=== PATIENT | female | born 1970 | race Caucasian/White ===

== ENCOUNTER 2019-07-22 07:31 | Inpatient (IN) ==
--- NOTE | 2019-06-27 09:52 | PAT Medication Instructions ---
Medication Instructions Date of Service June 27, 2019 Home Medications baclofen 10 mg PO BID celecoxib [Celebrex] 200 mg PO QAM cholecalciferol (vitamin D3) [Vitamin D3] 2,000 unit PO DAILY fenofibrate nanocrystallized [Tricor] 145 mg PO QAM multivitamin 1 tab PO DAILY ASK your surgeon for instructions celecoxib [Celebrex] 200 mg PO QAM STOP taking 48 hours before surgery fenofibrate nanocrystallized [Tricor] 145 mg PO QAM DO NOT take the morning of surgery baclofen 10 mg PO BID cholecalciferol (vitamin D3) [Vitamin D3] 2,000 unit PO DAILY multivitamin 1 tab PO DAILY Take evening before surgery baclofen 10 mg PO BID Other Notes If you have any questions please call us at [phone] or [phone] or [phone] or [phone]
--- NOTE | 2019-06-28 15:00 | PAT Medication Instructions ---
Medication Instructions Date of Service June 28, 2019 Home Medications baclofen 10 mg PO BID celecoxib [Celebrex] 200 mg PO QAM cholecalciferol (vitamin D3) [Vitamin D3] 2,000 unit PO DAILY fenofibrate nanocrystallized [Tricor] 145 mg PO QAM multivitamin 1 tab PO DAILY ASK your surgeon for instructions celecoxib [Celebrex] 200 mg PO QAM STOP taking 48 hours before surgery fenofibrate nanocrystallized [Tricor] 145 mg PO QAM DO NOT take the morning of surgery baclofen 10 mg PO BID cholecalciferol (vitamin D3) [Vitamin D3] 2,000 unit PO DAILY multivitamin 1 tab PO DAILY Take evening before surgery baclofen 10 mg PO BID *NOTHING TO EAT OR DRINK AFTER MIDNIGHT* Other Notes If you have any questions please call us at [phone] or [phone] or [phone] or [phone]
--- NOTE | 2019-07-01 08:25 | Anesthesiology Consultation ---
Date of Service July 01, 2019 Assessment & Plan (1) Encounter for pre-operative examination: Chart Review Chart Review: Acceptable Risk for Surgery and Patient seen in Pre Admission Testing Teaching & Discussion Pre-Anesthesia Teaching/Discussion Notes: Instructed NPO after midnight before surgery,except medications with 15 cc of water. Medication instructions provided according to the PAT guidelines. History Surgery Operation Date: 07/22/19 07:45 Proposed Procedures p C3-C4 Anterior Cervical Discectomy and Fusion, Possible C4-C5 Anterior Cervical Discectomy and Fusion, Spinal Cord Monitoring - Jose A Lemus DO Height/Weight Height: 5 ft 7 in Weight: 83.1 kg Allergies Allergy/AdvReac Type Severity Reaction Status Date / Time aspirin Allergy Severe throat Verified 06/27/19 09:52 swelling ibuprofen AdvReac Mild upset Verified 06/25/19 12:02 stomach Medications Home Medications Medication Instructions Recorded Confirmed Last Taken baclofen 10 mg PO BID 06/25/19 06/25/19 Unknown celecoxib [Celebrex] 200 mg PO QAM 06/25/19 06/25/19 Unknown cholecalciferol (vitamin D3) 2,000 unit PO DAILY 06/25/19 06/25/19 Unknown [Vitamin D3] fenofibrate nanocrystallized 145 mg PO QAM 06/25/19 06/25/19 Unknown [Tricor] multivitamin 1 tab PO DAILY 06/25/19 06/25/19 Unknown Past Medical History Medical History Degenerative disc disease Hyperlipidemia Migraine Neck pain Peripheral neuropathy Spondylarthrosis Spondylisthesis Exercise / Class Metabolic Activity II 4-5 Yardwork/Stairs/Walk up hill (one flight of stairs (no chest pain/no sob)) Past Family History Family History Other No family history of adverse response to anesthesia Past Surgical History Surgical History History of bilateral tubal ligation History of tonsillectomy Hx of foot surgery left big toe joint implant Hx of repair of left rotator cuff S/P ACL repair right knee with donor graft S/P arthroscopy of left shoulder S/P left knee arthroscopy S/P CINDY (total abdominal hysterectomy) Past Anesthesia History No Hx of Anesthesia Complications and No Family Hx of Anesthesia Complications History of PONV No Hx of PONV and No Hx of Motion Sickness STOP BANG Total 1 Social History Smoking Status: Former smoker tobacco type: cigarettes Do You Dip or Chew Tobacco: No Smoking End Date: Quit 2015 Hx Alcohol Use: No Hx Substance Use: No substance use type: does not use Review of Systems Patient denies chest pain, shortness of breath, dyspnea on exertion, reflux, cough, wheezing, palpitations. Physical Exam Vital Signs VITALS BP 143/78 P 70 TEMP 98.1 SP02 100%RA RESP 18 PHYSICAL Significant decreased cervical extension 2/2 cervicalgia (reason for upcoming surgery)* Full TMJ range of motion. TMD 3.5 finger breaths Mallampati Score 2 Dentition: several missing sides, possible crown Lungs: clear throughout to auscultation Cardiac: regular rate and rhythm, no murmurs noted Spine: normal Carotid arteries: negative bruit Extremities: no edema Testing Laboratory Results 07/01/19 08:20 07/01/19 08:20 PT 10.6 Seconds (9.0-12.0) 07/01/19 08:20 INR 1.0 (0.9-1.1) 07/01/19 08:20 APTT 25.4 Seconds (21.0-31.0) 07/01/19 08:20 Urine Color Yellow 07/01/19 08:20 Urine Appearance Clear (Clear) 07/01/19 08:20 Urine pH 6.0 (4.5-7.5) 07/01/19 08:20 Ur Specific [place] 1.019 (1.000-1.030) 07/01/19 08:20 Urine Protein Negative (Negative) 07/01/19 08:20 Urine Glucose (UA) Negative (Negative) 07/01/19 08:20 Urine Ketones Negative (Negative) 07/01/19 08:20 Urine Nitrite Negative (Negative) 07/01/19 08:20 Ur Leukocyte Esterase Negative (Negative) 07/01/19 08:20 Blood Type O Positive 07/01/19 08:20 Antibody Screen NEGATIVE 07/01/19 08:20 Electrocardiogram Date: 07/01/19 Findings: + NSR @ (64) Chest X-Ray Date: 07/01/19 Findings: + NAD
--- NOTE | 2019-07-01 08:51 | XRay Report ---
XR chest Pre-admission PA/Lat CLINICAL HISTORY: Preoperative evaluation. COMPARISON STUDY: No previous studies for comparison. FINDINGS: Lung volumes are normal. Lungs are clear. There is no pneumothorax or pleural effusion. Car diac size is normal. Mediastinal contours are normal. There is no evidence for pulmonary edema. IMPRESSION: No acute cardiopulmonary findings. Electronically signed by: Ronald Arrington M.D. 07/01/2019 8:49 AM
[2019-07-01 10:13] LABS: Basophils # (auto) 0.06 K/uL (0-0.2); Basophils % (auto) 0.6 %; Eosinophils # (auto) 0.39 K/uL (0-0.5); Eosinophils % (auto) 3.9 %; Hematocrit (blood only) 42.7 % (37-47); Hemoglobin 14.5 g/dL (12.0-16.0); Immature Granulocytes # (auto) 0.02 K/uL (0.00-0.02); Immature Granulocytes % (auto) 0.2 %; Lymphocytes # (auto) 3.37 K/uL (1.2-3.4); Lymphocytes % (auto) 34.1 %; Mean Corpuscular Hemoglobin 31.4 pg (25-34); Mean Corpuscular Volume 92.4 fL (80-100); Mean Platelet Volume 10.5 fL (7.4-10.4); Monocytes # (auto) 0.86 K/uL (0.11-0.59); Monocytes % (auto) 8.7 %; Neutrophils # (auto) 5.18 K/uL (1.4-6.5); Neutrophils % (auto) 52.5 %; Platelet Count 432 K/uL (130-400); RDW Coefficient of Variation 12.7 % (11.5-14.5); RDW Standard Deviation 42.5 fL (36.4-46.3); Red Blood Count 4.62 M/uL (4.2-5.4); White Blood Count 9.88 K/uL (4.8-10.8)
[2019-07-01 10:22] LABS: BUN Creatinine Ratio 20.8 (10-20); Calcium 9.7 mg/dl (8.5-10.1); Creatinine Clr Calc Pharmacy 83.8 ml/min; Est GFR (Non-African American) 75.1; Potassium 4.3 mmol/L (3.5-5.1)
[2019-07-01 10:30] LABS: Partial Thromboplastin Ratio 0.9; Partial Thromboplastin Time 25.4 Seconds (21.0-31.0); Prothrombin Time 10.6 Seconds (9.0-12.0)
[2019-07-01 11:38] LABS: Appearance Urine Clear (Clear); Bilirubin Urine Negative (Negative); Blood Urine Negative (Negative); Color Urine Yellow; Glucose Urine UA Negative (Negative); Ketones Urine Negative (Negative); Leukocyte Esterase Urine Negative (Negative); Nitrite Urine Negative (Negative); Protein Urine Negative (Negative); Specific Gravity Urine 1.019 (1.000-1.030); Urobilinogen Urine Negative (Negative)
[~2019-07-22 07:31] MED LIST: ACETAMINOPHEN 500 MG TAB PO SCH; CEFAZOLIN 2000MG 2,000 MG/15 ML SYR IV SCH; CeleBREX 200 MG CAP PO SCH; GABAPENTIN 900 MG DOSE PO SCH; LR 15ML/HR IV SCH; PROPOFOL IV EMULSION 10 MG/ML 100 ML VIAL IV ONE
[2019-07-22] MEDS ORDERED: ePHEDrine sulfate 50 MG/ML SYR ONE ×2 (08:15→11:16)
[2019-07-22] MEDS ORDERED: ROCURONIUM BROMIDE 10 MG/ML 5 ML VIAL ONE ×6 (08:15→11:15)
[2019-07-22] MEDS ORDERED: PROPOFOL IV EMULSION 10 MG/ML 20 ML VIAL IV ONE (08:15)
[2019-07-22] MEDS ORDERED: PHENYLEPHRINE 100MCG/ML 5ML SYR ONE (08:15)
[2019-07-22] MEDS ORDERED: LIDOCAINE HCL 2% 2 ML VIAL/AMP(20MG/ML) INFIL ONE (08:15)
[2019-07-22] MEDS ORDERED: DEXAMETHASONE SOD INJ 4 MG/ML VIAL ONE (08:15)
[2019-07-22] MEDS ORDERED: SUCCINYLCHOLINE CHLORIDE 20 MG/ML 10 ML VIAL ONE (08:15)
[2019-07-22] MEDS ORDERED: ONDANSETRON INJ 2 MG/ML 2 ML VIAL ONE (08:15)
[2019-07-22] MEDS ORDERED: LARYING-O-JET KIT (LTA) ONE (08:15)
[2019-07-22] MEDS ORDERED: fentaNYL citrate 100 MCG/2 ML VIAL ONE (08:16)
[2019-07-22] MEDS ORDERED: MIDAZOLAM HCL 1 MG/ML 2ML VIAL ONE (08:16)
[2019-07-22] MEDS ORDERED: fentaNYL citrate 100 MCG/2 ML VIAL IV PRN (08:56)
[2019-07-22] MEDS ORDERED: ePHEDrine sulfate 50 MG/ML AMP IV PRN (08:56)
[2019-07-22] MEDS ORDERED: LABETALOL HCL IV 5 MG/ML 20ML IV PRN (08:56)
[2019-07-22] MEDS ORDERED: ONDANSETRON INJ 2 MG/ML 2 ML VIAL IV PRN ×2 (08:56→13:00)
[2019-07-22] MEDS ORDERED: PHENYLEPHRINE 100MCG/ML 5ML SYR IV PRN (08:56)
[2019-07-22] MEDS ORDERED: MEPERIDINE HCL 25 MG/ML CARP IV PRN (08:56)
[2019-07-22] MEDS ORDERED: ATROPINE SULFATE 0.1 MG/ML 10ML SYR IV PRN (08:56)
[2019-07-22] MEDS ORDERED: HYDROmorphone INJ 2 MG/ML SYR/VIAL IV PRN (09:06)
--- NOTE | 2019-07-22 10:01 | History & Physical Bridge Note ---
Date of Service July 22, 2019 History & Physical Bridge Note I have examined the patient, reviewed the History & Physical and in the interval since the performance of the History & Physical I have noted the following changes of clinical significance: no changes noted
[2019-07-22] MEDS ORDERED: BACITRACIN INJ 50,000 UNIT VIAL ONE (10:02)
--- NOTE | 2019-07-22 10:02 | History & Physical Report ---
Date of Service July 22, 2019 Assessment & Plan (1) Cervical stenosis of spinal canal: C3-C4 anterior cervical discectomy and fusion possible C4-C5 anterior cervical discectomy and fusion Present on Admission?: Yes History of Present Illness Chief Complaint: Neck and arm pain Primary Care Provider: Eddie Sands This is a 48-year-old female who presents with chronic persistent neck and arm symptoms after failing extensive course of nonoperative care is here for surgical intervention. Allergies Allergy/AdvReac Type Severity Reaction Status Date / Time aspirin Allergy Severe throat Verified 07/22/19 07:58 swelling peanut Allergy Intermediate Hives Verified 07/22/19 07:58 ibuprofen AdvReac Mild upset Verified 07/22/19 07:58 stomach Home Medications Home Medications Medication Instructions Recorded Confirmed Type baclofen 10 mg PO BID 06/25/19 07/22/19 History celecoxib [Celebrex] 200 mg PO QAM 06/25/19 07/22/19 History cholecalciferol (vitamin D3) 2,000 unit PO DAILY 06/25/19 07/22/19 History [Vitamin D3] fenofibrate nanocrystallized 145 mg PO QAM 06/25/19 07/22/19 History [Tricor] multivitamin 1 tab PO DAILY 06/25/19 07/22/19 History acetaminophen [Tylenol] 650 mg PO Q6H PRN 07/22/19 07/22/19 History Past Med/Surg History Medical History Degenerative disc disease Hyperlipidemia Migraine Neck pain Peripheral neuropathy Spondylarthrosis Spondylisthesis Surgical History History of bilateral tubal ligation History of tonsillectomy Hx of foot surgery left big toe joint implant Hx of repair of left rotator cuff S/P ACL repair right knee with donor graft S/P arthroscopy of left shoulder S/P left knee arthroscopy S/P CINDY (total abdominal hysterectomy) Family History Other No family history of adverse response to anesthesia Social History Preferred Language: Swedish Communication Ability: Effective Oracle Ebs Architect Required: No Beliefs That Will Affect Care: Scientologist Scientologist Beliefs: mandaen Current Living Situation: Spouse Other Information That Helps Us Care for You: No Feels Safe at Home: Yes Safety Concerns: Feels Safe At This Time Smoking Status: Former smoker Tobacco Type: cigarettes ; Do You Dip or Chew Tobacco: No ; Smoking End Date: Quit 2015 ; Second Hand Exposure: Yes (currently) ; Tobacco Cessation Education Requested by Patient: No Hx Alcohol Use: No Hx Substance Use: No Physical Exam Physical Exam: Patient is alert alert and oriented neurologically intact. Results & Data Vital Signs (Past 12 Hours) Vital Signs Temp Pulse Resp BP Pulse Ox 07/22/19 08:01 36.9 C 67 20 129/67 96
[2019-07-22] MEDS ORDERED: FLOSEAL HEMOSTATIC MATRIX 10ML TOP ONE (10:48)
[2019-07-22] MEDS ORDERED: HYDROmorphone INJ 2 MG/ML SYR/VIAL ONE (11:06)
--- NOTE | 2019-07-22 11:27 | Operative Report ---
Post Operative Report Pre & Post Diagnosis Operation Date: 07/22/19 09:45 Pre-Op Diagnosis: Spinal Stenosis, Cervical Region Post-Op Diagnosis: Spinal Stenosis, Cervical Region I identified the patient and participated in the time-out.: Yes Procedure Operation Date: 07/22/19 09:45 Actual Procedures #1 anterior cervical discectomy with bilateral foraminotomies C3-4 #2 anterior cervical arthrodesis C3-4. #3 placement of Spira 8 mm cage filled with DBM at C3-4. #4 placement of 5 complete screws across C3-4. Surgeon Jose A Lemus, Meat Counter Worker Tatum Frankel Estimated Blood Loss 10 Findings Consistent with Post-Op Diagnosis Specimens None Indications This is a 48-year-old female who presents with above-mentioned diagnosis after failing extensive course of nonoperative care is here for surgical intervention. Description of Procedure Patient was met with identified informed consent obtained. Patient was then taken to the operative suite underwent an patient placed in supine position the Andre table with head Pretty head are. All bony prominences well-padded eyes inspected to ensure no external pressure placed upon them. This point the anterior cervical spine was prepped and draped in normal sterile fashion. With the assistance of fluoroscopy identified the C3-4 displacement transverse incision was placed along the right anterior aspect of the cervical spine overlying this region. Sharp dissection with the assistance of Bovie cautery was performed down to and exposing the anterior cervical spine at C3-4. A self- retaining retractor was placed. I performed a complete discectomy of C3-4 out to the uncovertebral joints bilaterally. I removed all posterior annular fibers longitudinal ligament bilateral foraminotomies performed. Endplates were then burred to subcortical bleeding bone and an 8 mm Spira cage filled with DBM tapped in position. 5 complete screws was then applied with the assistance of fluoroscopy. The incision was then copiously irrigated explored to ensure no damage to surrounding structures remaining bleeding. 10 round HORTENCIA drain inserted. The incision was then closed with 2 Vicryl in the fashion of 4 Monocryl for final skin closure. Steri-Strip sterile dressings placed. Patient will continue PACU stable condition. Please note Tatum Frankel present at the entire procedure involved in patient positioning complex portions of the surgery and final skin closure. Lastly spinal cord monitoring was utilized that the procedure no changes noted. I attest to the content of the Intraoperative Record and any orders documented therein. Any exceptions are noted below.
--- NOTE | 2019-07-22 12:00 | Fluoroscopy Report ---
FL cervical 2-3V CLINICAL HISTORY: C3-C4 ACDF COMPARISON STUDY: None. FLUOROSCOPY TIME: 9 seconds. FINDINGS: 2 fluoroscopic spot images demonstrates anterior cervical discectomy and fusion at C3-C4. T he hardware appears intact. There is gauze material anterior to the hardware. The surgeon is aware of this finding. IMPRESSION: Fluoroscopy provided for C3-C4 ACDF. ACT 112: Negative or not required by law. Electronically signed by: Jordi Barrios M.D. 07/22/2019 11:59 AM
[2019-07-22] MEDS ORDERED: NALOXONE HCL 0.4 MG/1 ML VIAL/CARP IV PRN (13:00)
[2019-07-22] MEDS ORDERED: ACETAMINOPHEN 500 MG TAB PO PRN (13:00)
[2019-07-22] MEDS ORDERED: LORazepam 0.5 MG TAB PO PRN (13:00)
[2019-07-22] MEDS ORDERED: ONDANSETRON 4 MG OD TAB PO PRN (13:00)
[2019-07-22] MEDS ORDERED: RACEPINEPHRINE 2.25% NEBU SOLN 0.5 ML VIAL INH PRN (13:00)
[2019-07-22] MEDS ORDERED: OXYCODONE HCL IR 5 MG TAB (IMMEDIATE RELEASE) PO PRN (13:00)
[2019-07-22] MEDS ORDERED: MAGNESIUM HYDROXIDE SUSP 30 ML UDC PO PRN (13:00)
[2019-07-22] MEDS ORDERED: HYDROmorphone INJ 0.5 MG/0.5 ML SYR IV PRN (13:00)
[2019-07-22] MEDS ORDERED: LORazepam 0.5 MG/1 ML VIAL IV PRN (13:00)
[2019-07-22] MEDS ORDERED: ACETAMINOPHEN 325 MG TAB PO PRN (13:00)
[2019-07-22] MEDS ORDERED: SOD PHOSPHATE/SOD BIPHOSPHATE ENEMA 132 ML BTL PR PRN (13:00)
[2019-07-22] MEDS ORDERED: FAMOTIDINE 20 MG TAB PO PRN (13:00)
[2019-07-22] MEDS ORDERED: DO NOT ADMINISTER PNEUMOCOCCAL VACCINE PRN (13:00)
[2019-07-22] MEDS ORDERED: DO NOT ADMINISTER FLU VACCINE PRN (13:00)
[2019-07-22] MEDS ORDERED: TRAMADOL HCL 50 MG TABLET PO PRN (13:00)
[2019-07-22] MEDS ORDERED: DEXAMETHASONE SOD PHOSPHATE 8 MG in SYRINGE 0 ML IV PRN (13:00)
[2019-07-22] MEDS ORDERED: PROMETHAZINE HCL 12.5 MG in SODIUM CHLORIDE 0.9% 50 ML IV PRN (13:00)
[2019-07-22] MEDS ORDERED: HYDROmorphone INJ 1 MG/ML SYRINGE IV PRN (13:00)
[2019-07-22] MEDS ORDERED: METOCLOPRAMIDE HCL INJ 5 MG/ML 2 ML VIAL IV PRN (13:00)
[2019-07-22] MEDS ORDERED: ACETAMINOPHEN 1,000 MG/100 ML VIAL IV PRN (13:00)
[2019-07-22] MEDS ORDERED: ALUMINUM/MAGNESIUM SUSP 30 ML UDC PO PRN (13:00)
--- NOTE | 2019-07-22 13:08 | Anesthesiology Progress Note ---
Date of Service July 22, 2019 Anesthesia Post Procedure Vital Signs Vital Signs: Temp Pulse Pulse Pulse Resp BP BP 07/22/19 12:46 70 14 07/22/19 12:45 73 14 112/72 07/22/19 12:41 75 14 07/22/19 12:40 68 14 114/76 07/22/19 12:36 68 12 07/22/19 12:35 68 14 120/72 07/22/19 12:33 68 14 122/76 07/22/19 12:31 36.6 C 69 14 07/22/19 12:30 67 14 122/76 07/22/19 12:26 74 21 07/22/19 12:25 67 23 139/80 07/22/19 12:21 76 14 07/22/19 12:20 75 14 118/81 07/22/19 12:16 75 13 07/22/19 12:15 78 15 121/82 07/22/19 12:11 73 14 07/22/19 12:10 67 14 124/77 07/22/19 12:06 67 13 07/22/19 12:05 66 12 121/73 07/22/19 12:01 67 19 07/22/19 12:00 65 14 127/78 07/22/19 11:56 71 14 07/22/19 11:55 72 15 127/84 07/22/19 11:51 69 14 07/22/19 11:50 69 14 116/78 07/22/19 11:46 67 16 07/22/19 11:45 70 14 113/81 07/22/19 11:41 69 14 07/22/19 11:40 70 21 141/84 H 07/22/19 11:38 69 12 07/22/19 11:37 37.2 C 70 68 15 131/87 131/57 L 07/22/19 08:01 36.9 C 67 20 BP Pulse Ox 07/22/19 12:46 97 07/22/19 12:45 98 07/22/19 12:41 98 07/22/19 12:40 97 07/22/19 12:36 97 07/22/19 12:35 98 07/22/19 12:33 98 07/22/19 12:31 98 07/22/19 12:30 98 07/22/19 12:26 96 07/22/19 12:25 98 07/22/19 12:21 98 07/22/19 12:20 98 07/22/19 12:16 99 07/22/19 12:15 99 07/22/19 12:11 98 07/22/19 12:10 98 07/22/19 12:06 99 07/22/19 12:05 99 07/22/19 12:01 98 07/22/19 12:00 98 07/22/19 11:56 98 07/22/19 11:55 98 07/22/19 11:51 99 07/22/19 11:50 98 07/22/19 11:46 95 07/22/19 11:45 95 07/22/19 11:41 98 07/22/19 11:40 98 07/22/19 11:38 99 07/22/19 11:37 99 07/22/19 08:01 129/67 96 Pain Intensity Posterior Neck: Pain Intensity: 2 Head: Pain Intensity: 2 Anterior Neck: Pain Intensity: 2 Transfer of Care Handoff Completed per policy Notes Mental Status: alert / awake / arousable Patient Amnestic to Procedure: Yes Nausea / Vomiting: adequately controlled Pain: adequately controlled Airway Patency, RR, SpO2: stable & adequate BP & HR: stable & adequate Hydration State: stable & adequate Anesthetic Complications: no major complications apparent and Pt Satisfied with anesthetic care Notes: The patient is doing well. Her neck does not appear to be swollen.
[2019-07-22] MEDS: CEFAZOLIN 2000MG 2,000 MG/15 ML SYR IV SCH (18:05)
[2019-07-22] MEDS: LACTATED RINGER'S 1,000 ML IV SCH (18:06)
[2019-07-22] MEDS ORDERED: DOCUSATE SODIUM/SENNA 50/8.6MG TAB PO SCH (21:00)
[2019-07-23] MEDS: CEFAZOLIN 2000MG 2,000 MG/15 ML SYR IV SCH (01:33)
[2019-07-23] MEDS: LACTATED RINGER'S 1,000 ML IV SCH (02:02)
[2019-07-23] MEDS ORDERED: Nursing to Pharmacy Communication ONE (07:01)
[2019-07-23] MEDS ORDERED: DEXAMETHASONE SOD PHOSPHATE 8 MG in SYRINGE 0 ML IV STA (07:40)
[2019-07-23] MEDS ORDERED: CHOLECALCIFEROL 1,000 UNITS TAB PO SCH (09:00)
[2019-07-23] MEDS ORDERED: FENOFIBRATE NANOCRYSTALLIZED 145 MG TABLET PO SCH (09:00)
--- NOTE | 2019-07-23 10:51 | Anesthesiology Progress Note ---
Date of Service July 23, 2019 Anesthesia Post Procedure Vital Signs Vital Signs: Temp Pulse Pulse Pulse Resp BP BP 07/23/19 09:22 36.8 C 67 16 110/70 07/23/19 07:50 64 18 07/23/19 06:57 36.8 C 70 18 114/68 07/23/19 05:38 36.5 C 80 16 115/71 07/23/19 03:34 36.5 C 81 17 113/76 07/23/19 03:10 73 16 07/23/19 01:33 36.5 C 78 16 111/78 07/22/19 23:40 90 18 07/22/19 23:35 36.5 C 86 16 108/73 07/22/19 22:04 36.6 C 83 12 101/65 07/22/19 19:44 36.6 C 90 12 07/22/19 19:23 95 H 14 07/22/19 17:56 36.7 C 92 H 16 07/22/19 16:15 36.7 C 90 14 07/22/19 15:20 95 H 16 07/22/19 15:00 36.4 C L 87 14 07/22/19 14:00 36.5 C 78 17 116/67 07/22/19 13:48 67 16 110/62 07/22/19 13:45 78 16 07/22/19 13:30 36.6 C 87 15 117/78 07/22/19 13:00 36.6 C 80 16 118/77 07/22/19 12:46 70 14 07/22/19 12:45 73 14 112/72 07/22/19 12:41 75 14 07/22/19 12:40 68 14 114/76 07/22/19 12:36 68 12 07/22/19 12:35 68 14 120/72 07/22/19 12:33 68 14 122/76 07/22/19 12:31 36.6 C 69 14 07/22/19 12:30 67 14 122/76 07/22/19 12:26 74 21 07/22/19 12:25 67 23 139/80 07/22/19 12:21 76 14 07/22/19 12:20 75 14 118/81 07/22/19 12:16 75 13 07/22/19 12:15 78 15 121/82 07/22/19 12:11 73 14 07/22/19 12:10 67 14 124/77 07/22/19 12:06 67 13 07/22/19 12:05 66 12 121/73 07/22/19 12:01 67 19 07/22/19 12:00 65 14 127/78 07/22/19 11:56 71 14 07/22/19 11:55 72 15 127/84 07/22/19 11:51 69 14 07/22/19 11:50 69 14 116/78 07/22/19 11:46 67 16 07/22/19 11:45 70 14 113/81 07/22/19 11:41 69 14 07/22/19 11:40 70 21 141/84 H 07/22/19 11:38 69 12 07/22/19 11:37 37.2 C 70 68 15 131/87 131/57 L BP Pulse Ox Pulse Ox 07/23/19 09:22 96 07/23/19 07:50 97 07/23/19 06:57 96 07/23/19 05:38 97 07/23/19 03:34 97 07/23/19 03:10 99 07/23/19 01:33 97 07/22/19 23:40 97 07/22/19 23:35 96 07/22/19 22:04 97 07/22/19 19:44 110/74 96 07/22/19 19:23 96 07/22/19 17:56 116/78 96 07/22/19 16:15 119/76 96 07/22/19 15:20 96 07/22/19 15:00 112/77 95 07/22/19 14:00 95 07/22/19 13:48 99 07/22/19 13:45 96 07/22/19 13:30 96 07/22/19 13:00 95 95 07/22/19 12:46 97 07/22/19 12:45 98 07/22/19 12:41 98 07/22/19 12:40 97 07/22/19 12:36 97 07/22/19 12:35 98 07/22/19 12:33 98 07/22/19 12:31 98 07/22/19 12:30 98 07/22/19 12:26 96 07/22/19 12:25 98 07/22/19 12:21 98 07/22/19 12:20 98 07/22/19 12:16 99 07/22/19 12:15 99 07/22/19 12:11 98 07/22/19 12:10 98 07/22/19 12:06 99 07/22/19 12:05 99 07/22/19 12:01 98 07/22/19 12:00 98 07/22/19 11:56 98 07/22/19 11:55 98 07/22/19 11:51 99 07/22/19 11:50 98 07/22/19 11:46 95 07/22/19 11:45 95 07/22/19 11:41 98 07/22/19 11:40 98 07/22/19 11:38 99 07/22/19 11:37 99 Pain Intensity Posterior Neck: Pain Intensity: 2 Head: Pain Intensity: 2 Anterior Neck: Pain Intensity: 2 Notes Mental Status: alert / awake / arousable and participated in evaluation Patient Amnestic to Procedure: Yes Nausea / Vomiting: adequately controlled Pain: adequately controlled Airway Patency, RR, SpO2: stable & adequate BP & HR: stable & adequate Hydration State: stable & adequate Anesthetic Complications: no major complications apparent
[2019-07-23] MEDS ORDERED: POLYETHYLENE (MIRALAX) 17 GM PACK PO SCH (12:00)
--- NOTE | 2019-07-23 12:37 | Discharge Summary ---
Date of Service July 23, 2019 Admission HPI Per Admitting Provider This is a 48-year-old female who presents with chronic persistent neck and arm symptoms after failing extensive course of nonoperative care is here for surgical intervention. Principal Diagnosis Cervical spinal stenosis. Discharge Data Allergies Allergy/AdvReac Type Severity Reaction Status Date / Time aspirin Allergy Severe throat Verified 07/22/19 07:58 swelling peanut Allergy Intermediate Hives Verified 07/22/19 07:58 ibuprofen AdvReac Mild upset Verified 07/22/19 07:58 stomach Procedures Performed Operation Date: 07/22/19 09:45 Actual Procedures p C3-C4 Anterior Cervical Discectomy and Fusion, Spinal Cord Monitoring(Not Applicable) - Jose A Lemus DO Ordered Studies 07/22/19 07:00 FL cervical 2-3V Routine FL fluoroscopy <1hr Routine Hospital Course (1) Cervical stenosis of spinal canal: Patient underwent anterior cervical discectomy and fusion C3-4 tolerated as well as taken to orthopedic for postoperative. Postop day 1 he is swallowing well neck symptoms improved. Her strength is intact. Subsequently discharged home. Discharge orders instructions from the chart for further review. Total Time Total Time Spent Total Time Spent (In Minutes): 20 minutes Discharge Plan Discharge Items Patient Disposition: Home - Self-Care Reason For Visit: Spinal Stenosis, Cervical Region Discharge Diagnosis: cervical stenosis Activity: As commented below Non-emergency contact: Primary Care Provider Call non-emergency contact if: you have any medication questions Follow-up/Referrals: Eddie Sands [Primary Care Provider] - Diet: Regular Addtl Attending Provider Instructions: ACTIVITY RECOMMENDATIONS: SELF CARE INSTRUCTIONS AFTER CERVICAL FUSIONS 1. No smoking. Smoking drastically decreases the chance of a solid fusion. 2. No bending, lifting more than 5 pounds, or twisting (roll like a log when turning in bed). 3. You may shower 3 days after surgery. Thoroughly dry wound. Do not soak in the tub. 4. Cervical collar: Must be worn at all times including sleeping. You may remove the brace only to bath, eat and if you are sitting in a recliner. 5. Please walk as much as you can for exercise. Gradually increase the distance that you walk as your endurance increases. SPECIAL CARE INSTRUCTIONS: VERY IMPORTANT TO READ AND REVIEW A. Do not take any anti-inflammatory medications (i.e. Indocin, Advil, Aspirin, Naprosyn, Aleve, Motrin, etc.) as these may inhibit the chance of a solid fusion. Tylenol is okay to take. B. Your surgical incision has been closed with a cosmetic suture under the skin that will dissolve in about 6 weeks. In 14 days, you can use a pair of clean scissors and cut the suture that is left outside of the skin at the ends of your incision. C. Complications are uncommon, but please contact us if you have any signs or symptoms of: 1. wound infection (fever higher than 102.5 degrees F, redness, separation of wound, drainage, or increasing pain from the incision) 2. blood clots in legs (pain, swelling, redness and warmth in legs) 3. urinary tract infection (fever higher than 102.5 degrees, burning upon urination or increased frequency of urination) 4. nerve problems (inability to walk on your toes or heels, numbness, loss of bowel or bladder control) 5. any other symptoms that concern you. D. Please call the office at if you have any concerns or questions about your operation or recovery. MANAGING PAIN AFTER SPINAL SURGERY 1. Narcotic medication is intended for short-term use and will be provided for surgical pain. Surgical pain usually lasts for a period of 4-6 weeks. Narcotic medication includes Percocet, Vicodin, Darvocet, Tylenol #3 or Lortab. 2. Longer-term pain is more appropriately treated with non-narcotic medication such as Tylenol ES. 3. Muscle spasm is not appropriately treated with narcotics. Muscle relaxers such as Soma, Flexeril or Skelaxin can be used along with Tylenol ES. 4. Remember that we all live with some "aches and pains". This is not unusual or uncommon after an injury or as we get older. 5. We will provide appropriate medication within the normal guidelines of their prescribed use. We will also be very cautious and aware of potential abuse and extended duration of patients' medication needs. 6. Please allow 2-3 days to process refills. Prescriptions will not be mailed but must be picked up at the office. FOLLOW UP VISIT: Keep your scheduled follow-up appointment. Any questions, please call the office at . Pending Studies at Discharge: No Stand-Alone Forms: [employer], Opioid Pain Management, Smoking Cessation Medications and DC Order Prescriptions: New hydrocodone-acetaminophen 5-325 mg tablet See Rx Instructions .ROUTE .COMPLEX PRN (Reason: pain) Qty: 10 RF: 0 Continued celecoxib [Celebrex] 200 mg Capsule 200 mg PO QAM RF: 0 baclofen 10 mg Tablet 10 mg PO BID RF: 0 fenofibrate nanocrystallized [Tricor] 145 mg Tablet 145 mg PO QAM RF: 0 multivitamin Tablet 1 tab PO DAILY RF: 0 cholecalciferol (vitamin D3) [Vitamin D3] 2,000 unit Tablet 2,000 unit PO DAILY RF: 0 acetaminophen [Tylenol] 325 mg Tablet 650 mg PO Q6H PRN (Reason: Pain) RF: 0 Discharge Orders: Discharge Order (Routine); Ordered 07/23/19 Ordered By: Jose A Lemus Admission Data Admit Date/Time: 07/22/19 10:20 Attending Provider: Jose A Lemus Admit Provider: Jose A Lemus Primary Care Provider: Eddie Sands Other Interventions: Discharge Summary Assessment (RN) Last Done: 07/23/19 10:30 DC Date/Time DO NOT enter until pt leaves facility: 07/23/19 10:55
[2019-07-24] MEDS ORDERED: bisacodyL 10 MG SUPP PR PRN (11:28)
== END 2019-07-23 10:55 | disposition home or self-care (01) | DRG 473 ==
LOC: ASU 07:31 → 3E 10:20